=== PATIENT | female | born 1930 | race Caucasian/White ===

== ENCOUNTER 2016-08-23 16:40 | Observation (INO) | payer MEDICARE, BC ==
[~2016-08-23] VITALS: Ht 152.4 cm; Wt 77.8 kg
[~2016-08-23 16:40] MED LIST: ADVAIR DIS14 PUFF/DI INH; ANUCORT-HC25 MG RECTAL; ARICEPT10 MG PO; CALCIUM 600 +1 EACH PO; CELEXA20 MG PO; CERTAVITE SR-AN1 TAB PO; HALFPRIN81 MG PO; MILK OF MAGNESI30 ML PO; MIRALAX17 GM PO; MYRBETRIQ25 MG PO; NAMENDA10 MG PO; NORVASC5 MG PO; OCUVITE EYE +1 EACH PO; PLAVIX75 MG PO; PROCTOZONE-HC30 GM RECTAL; PROTONIX40 MG PO; RECTIV30 GM RECTAL; THERA M PLUS T1 EACH PO; TYLENOL500 MG PO; ULTRAM50 MG PO; VESICARE10 MG PO; VITAMIN D31000 UNI1 PO
[2016-08-23] MEDS ORDERED: ALAWAY10 ML EYEBOTH (18:00)
[2016-08-23] MEDS ORDERED: NAMENDA XR28 MG PO (18:06)
[2016-08-24] MEDS ORDERED: NAMENDA XR28 MG PO (08:13)
[2016-08-24] MEDS ORDERED: NORVASC2.5 MG PO (12:08)
== END 2016-08-24 15:20 | disposition home health service (06) ==
LOC: IP 16:40 → OBS 16:40 → IP 16:40
PROVIDERS: ADMIT Family Medicine
DX: R55 Syncope and collapse (principal); I95.9 Hypotension, unspecified; E86.0 Dehydration; F03.90 Unspecified dementia, unspecified severity, without behavioral disturbance, psychotic disturbance, mood disturbance, and anxiety; K21.9 Gastro-esophageal reflux disease without esophagitis; I10 Essential (primary) hypertension; Z86.73 Personal history of transient ischemic attack (TIA), and cerebral infarction without residual deficits; Z88.0 Allergy status to penicillin; Z88.2 Allergy status to sulfonamides; Z79.82 Long term (current) use of aspirin; Z79.899 Other long term (current) drug therapy; Z90.49 Acquired absence of other specified parts of digestive tract; Z90.710 Acquired absence of both cervix and uterus; Z98.890 Other specified postprocedural states
CPT/HCPCS: G0378; G0379

== ENCOUNTER 2016-08-31 17:20 | Observation (INO) | payer MEDICARE, BC ==
[~2016-08-31] VITALS: Ht 152.4 cm; Wt 75.8 kg
[~2016-08-31 17:20] MED LIST changes: +ALAWAY10 ML EYEBOTH; +NAMENDA XR28 MG PO; +NORVASC2.5 MG PO
[2016-08-31] MEDS ORDERED: VIBRAMYCIN100 MG PO (17:36)
[2016-08-31] MEDS ORDERED: MUCINEX600 MG PO (17:37)
[2016-08-31] MEDS ORDERED: OCUVITE EYE +1 EACH PO (17:42)
[2016-09-02] MEDS ORDERED: PROVENTIL2.5 MG/3 M NEB (09:45)
== END 2016-09-02 11:15 ==
LOC: IP 17:20
PROVIDERS: ADMIT Family Medicine
DX: I63.9 Cerebral infarction, unspecified (principal); J20.9 Acute bronchitis, unspecified; I10 Essential (primary) hypertension; F03.90 Unspecified dementia, unspecified severity, without behavioral disturbance, psychotic disturbance, mood disturbance, and anxiety; K21.9 Gastro-esophageal reflux disease without esophagitis; M15.9 Polyosteoarthritis, unspecified; H35.30 Unspecified macular degeneration; Z88.0 Allergy status to penicillin; Z88.2 Allergy status to sulfonamides; Z79.82 Long term (current) use of aspirin; Z79.02 Long term (current) use of antithrombotics/antiplatelets; Z79.899 Other long term (current) drug therapy
CPT/HCPCS: G0378; G0379; G8978-GP; G8979-GP; G8996-GN; G8997-GN; G8998-GN; J1650

== ENCOUNTER → 2016-12-26 | Outpatient (CLI) | payer MEDICARE, BC ==
[~2016-12-26] MED LIST changes: +MUCINEX600 MG PO; +PROVENTIL2.5 MG/3 M NEB; +VIBRAMYCIN100 MG PO
== END | disposition short-term general hospital (02) ==
LOC: CLNEUR 07:40
DX: I69.351 Hemiplegia and hemiparesis following cerebral infarction affecting right dominant side (principal); F03.90 Unspecified dementia, unspecified severity, without behavioral disturbance, psychotic disturbance, mood disturbance, and anxiety